=== PATIENT | female | born 1965 ===

== ENCOUNTER 2017-07-16 11:04 | Emergency (ER) | payer MEDICARE ==
[2017-07-16 12:39] VITALS: BP 145/90
--- NOTE | 2017-07-16 13:55 | UC ---
Abdominal Pain Female HPI - HPI Summary HPI Summary: 51 female presents with complaints of pain in right upper quadrant radiating into her back that has been ongoing for the past 3 weeks, worsening over the past few days. Patient states it has become unbearable, she is unable to lay due to the pain. Any touch makes the pain worse. Has not associated with certain foods. Denies any trauma, injury or strenuous physical activity. Denies vomiting and fever. Admits to nausea and diarrhea. Does still have gallbladder. Had splenectomy 2 years ago. No other PMHx other than congenital heart disease. Attempted to taking Advil for pain and did not have relief. No urinary or genitalia complaints. Denies cough, trouble breathing and chest pain. - History of Current Complaint Chief Complaint: UCBackPain Stated Complaint: RIGHT SIDE/BACK PAIN Time Seen by Provider: 07/16/17 13:29 Hx Obtained From: Patient ?: No Onset/Duration: Sudden Onset, Lasting Weeks, Still Present, Worse Since Timing: Constant Severity Initially: Moderate Severity Currently: Severe Pain Intensity: 8 Pain Scale Used: 0-10 Numeric Location: Discrete At: RUQ Radiates: Yes Radiates to: Back Character: Aching, Sharp Aggravating Factor(s): Movement, Deep Breaths Alleviating Factor(s): Nothing Associated Signs and Symptoms: Positive: Back Pain, Nausea, Diarrhea. Negative : Fever, Cough, Blood in Stool, Urinary Symptoms Allergies/Adverse Reactions: Allergies Allergy/AdvReac Type Severity Reaction Status Date / Time CI Pigment Blue 63 Allergy Nausea And Verified 07/16/17 12:24 [From Cymbalta] Vomiting Duloxetine [From Cymbalta] Allergy Nausea And Verified 07/16/17 12:24 Vomiting Heparin Allergy See Comment Verified 07/16/17 12:24 Home Medications: Home Medications Carvedilol TAB* [Coreg TAB*] 1 tab BID 07/16/17 [History Confirmed 07/16/17] Sacubitril-Valsartan [Entresto 24-26 mg] 1 tab BID 07/16/17 [History Confirmed 07/16/17] PMH/Surg Hx/FS Hx/Imm Hx - Additional Past Medical History Additional PMH: PMHx: congenital heart disease, splenectomy - Surgical History Surgical History: Yes Surgery Procedure, Year, and Place: Pacemaker/defib. Splenectomy - Family History Known Family History: Positive: None - Social History Alcohol Use: None Substance Use Type: None Smoking Status (MU): Current Every Day Smoker Type: Cigarettes Amount Used/How Often: 1 PPD - Immunization History Most Recent Influenza Vaccination: NONE 2016 Review of Systems Constitutional: Negative Respiratory: Negative Cardiovascular: Negative Gastrointestinal: Abdominal Pain, Diarrhea, Nausea Genitourinary: Negative Motor: Negative All Other Systems Reviewed And Are Negative: Yes Physical Exam Triage Information Reviewed: Yes Appearance: Well-Appearing, Well-Nourished, Pain Distress - moderate, holding side, appears fatigued and uncomfortable. Vital Signs: Initial Vital Signs Temp 97.9 F 07/16/17 12:26 Pulse 73 07/16/17 12:26 Resp 18 07/16/17 12:26 BP 145/90 07/16/17 12:26 Pulse Ox 98 07/16/17 12:26 Vital Signs Reviewed: Yes Eyes: Positive: Conjunctiva Clear, Other: - no jaundice noted ENT: Positive: Normal ENT inspection, Hearing grossly normal, Pharynx normal, TMs normal Neck: Positive: Supple, Nontender Respiratory: Positive: Chest non-tender, Lungs clear, Normal breath sounds, No respiratory distress, No accessory muscle use Cardiovascular: Positive: RRR, No Murmur, Pulses Normal Abdomen Description: Positive: No Organomegaly, Soft, Distended, Guarding, Hepatomegaly - unable to check due to discomfort, Other: - + [place] sign. RUQ exquisite tenderness. Negative: Bruit, CVA Tenderness (R), CVA Tenderness (L), [place]'s Point Tenderness Musculoskeletal: Positive: Strength Intact Neurological Exam: Normal Skin Exam: Normal Skin: Positive: Other - no jaundice noted Abd Pain Female Course/Dx - Course Course Of Treatment: due to patients HPI and PE findings concerned for cholecystitis/lithasis or liver etiology. no concern for cholangitis. no recent trauma, injury or strain suggesting MSK etiology. No concern for respiratory due to patient denying cough, and normal respiratory PE findings. Normal vitals. Patient offered ambulance to [facility] however denied and stated she would go by private car. Spoke with Swapna Chavez NP who accepted patient at 2:00pm. - Differential Dx/Diagnosis Differential Diagnosis: Constipation, Diverticulitis, Gall Bladder Disease, Pancreatitis, Renal Colic Provider Diagnoses: RUQ abdominal pain Discharge - Discharge Plan Condition: Stable Disposition: AGAINST MEDICAL ADVICE Referrals: [facility] – [place] [facility] [Outside] No Primary Care Phys,NOPCP [Primary Care Provider] -
== END 2017-07-16 14:08 | disposition left against medical advice (07) ==
LOC: UCCORT 11:04
DX: R10.11 Right upper quadrant pain (principal); Q24.9 Congenital malformation of heart, unspecified; F17.210 Nicotine dependence, cigarettes, uncomplicated; Z88.8 Allergy status to other drugs, medicaments and biological substances; Z95.810 Presence of automatic (implantable) cardiac defibrillator
CPT/HCPCS: 99212; G0463